=== PATIENT | female | born 2000 | race Caucasian/White ===

== ENCOUNTER → 2025-08-31 13:27 | Outpatient (CLI) | payer OTHER, SELFPAY ==
--- NOTE | 2025-08-31 13:29 | DI.US.S_ITS ---
PROCEDURE: US OB >= 14 WEEKS FETUS INDICATIONS: ANATOMY SCAN The calculations are made using the working CEDRICK of 01/20/2025. TECHNIQUE: Real-time scanning was performed of the fetus, with image documentation and biometric measurements. Endovaginal scanning: No COMPARISON: None. FINDINGS: General: A single living intrauterine gestation is present. Presentation: Variable. Placenta: Placental position is posterior , without previa. Amniotic fluid index: 13.1 cm, normal range is 5-24 cm. Single deepest vertical pocket is 4.4 cm. heart rate: 150 beats per minute. Maternal cervical canal: 3.4 cm long. Normal lower limit is 2.5 cm. biometrics: Biparietal diameter: 4.5 cm, 19 week 3 day Head circumference: 17.0 cm, 19 week 5 day Abdominal circumference: 15.3 cm, 20 week 4 day Femur length: 3.1 cm, 19 week 4 day Clinically estimated gestational age: 19 week 5 day Composite gestational age from present scan: 19 week 6 day Estimated weight and percentile: 328 g, 64% Anatomic survey: Neuro: Ventricles are non-dilated at less than 10 mm. Cisterna magna is normal at 3-11 mm. Cerebellum is not well seen. Nuchal skin fold: Not well seen Face: Nose and lips, facial profile are normal. Spine: No evidence for spina bifida. Heart: Four-chamber view not well seen. Ventricular outflow tracks unremarkable. Diaphragm: Diaphragm is intact. Stomach: Left-sided stomach is present. Kidneys: No hydronephrosis. Normal is less than 5 mm in 2nd trimester, less than 7 mm in 3rd trimester. Cord: 3-vessel cord has orthotopic insertion. Bladder: Normal in size. Extremities: All 4 extremities identified. IMPRESSION: Single live intrauterine consistent with a 19 week 6 day gestation by current ultrasound. cerebellum, nuchal region and four-chamber cardiac views are not well seen. anatomic survey otherwise unremarkable. Approved by: Alfonzo Haley M.D. on 09/01/2025 at 16:36
== END ==
LOC: US 13:28
PROVIDERS: PCP Nurse Practitioner Obstetrics & Gynecology; Referring Provider Advanced Practice Midwife; Visit Provider Advanced Practice Midwife
DX: Z34.92 Encounter for supervision of normal pregnancy, unspecified, second trimester (principal); Z3A.19 19 weeks gestation of pregnancy
CPT/HCPCS: 76811

== ENCOUNTER → 2025-09-20 12:04 | Outpatient (CLI) | payer OTHER, SELFPAY ==
--- NOTE | 2025-09-20 12:05 | DI.US.S_ITS ---
PROCEDURE: US OB FOLLOW UP INDICATIONS: F/U HEART NECK BRAIN OUTSIDE/PRIOR DATING DATA: The calculations are made using the CEDRICK of 01/20/2026. TECHNIQUE: Real-time scanning was performed of the fetus, with image documentation. Endovaginal scanning: Not performed COMPARISON: [facility], OB >= 14 WEEKS FETUS, 08/31/2025, 14:20. FINDINGS: A single living intrauterine gestation is present. Presentation: Vertex. Placenta: Placental position is right fundal, without previa. Amniotic fluid index: 12.9 cm, normal range is 5-24 cm. Single deepest vertical pocket is 4.5 cm. heart rate: 128 beats per minute. Maternal cervical canal: 4.3 cm long. Normal lower limit is 2.5 cm. Clinically estimated gestational age: 22 weeks, 4 days Normal appearance of the cerebellum, cisterna magna and nuchal fold. Normal appearance of the four-chamber heart. IMPRESSION: 1. Single live intrauterine consistent with 22 weeks and 4 days. 2. Normal appearance of the four-chamber heart, nuchal fold, cerebellum and cisterna magna. Dictated by: Antione Caro M.D. on 09/21/2025 at 14:07 Approved by: Antione Caro M.D. on 09/21/2025 at 14:08
== END ==
LOC: US 12:04
PROVIDERS: PCP Nurse Practitioner Obstetrics & Gynecology; Referring Provider Nurse Practitioner Obstetrics & Gynecology; Visit Provider Nurse Practitioner Obstetrics & Gynecology
DX: Z34.82 Encounter for supervision of other normal pregnancy, second trimester (principal); Z3A.22 22 weeks gestation of pregnancy
CPT/HCPCS: 76816